=== PATIENT | male | born 1975 | race Caucasian/White ===

== ENCOUNTER 2018-02-13 20:31 | Emergency (ER) | payer BC ==
[~2018-02-13] VITALS: Ht 193 cm; Wt 95.3 kg
[2018-02-13 20:35] VITALS: BP_SYST 137
[2018-02-13 21:53] LABS: EOSINOPHILS # (AUTO) 0.1 K/uL (0.0-0.4); RED BLOOD CELL COUNT(AUTO) 4.99 MIL/uL (4.2-6.2)
[2018-02-13 21:56] LABS: BASOPHILS # (AUTO) 0.2 K/uL (0.0-0.2); BASOPHILS % (AUTO) 1.6 % (0.0-2.0); HEMATOCRIT 44.1 % (36-54); HEMOGLOBIN 15.1 g/dL (14.0-18.0); LYMPHOCYTES # (AUTO) 2.2 K/uL (1.0-5.5); LYMPHOCYTES % (AUTO) 21.6 % (20.5-51.5); MEAN CORPUSCULAR HEMOGLOBIN 30 pg (27-31); MEAN CORPUSCULAR HGB CONC 34 % (32-36); MEAN CORPUSCULAR VOLUME 89 fL (79.0-98.0); MONOCYTES # (AUTO) 0.6 K/uL (0.0-1.0); NEUTROPHILS # (AUTO) 7.3 K/uL (1.8-7.7); NEUTROPHILS % (AUTO) 69.8 % (40.0-70.0); PLATELET COUNT (AUTO) 326 K/uL (130-430); RED CELL DISTRIBUTION WIDTH 12.6 % (9.0-15.0); WHITE BLOOD COUNT (AUTO) 10.4 K/uL (4.8-10.8)
[2018-02-13 21:58] LABS: BILIRUBIN,URINE NEGATIVE (NEGATIVE); BLOOD, URINE NEGATIVE (NEGATIVE); CLARITY/URINE SL CLOUDY (CLEAR); COLOR,URINE YELLOW (YELLOW); GLUCOSE,URINE NEGATIVE (NEGATIVE); KETONES,URINE TRACE (NEGATIVE); LEUKOCYTE ESTERASE ,URINE NEGATIVE (NEGATIVE); NITRITE, URINE NEGATIVE (NEGATIVE); PROTEIN URINE TRACE (NEGATIVE); UROBILINOGEN,URINE 0.2 (0.2-1.0)
[2018-02-13 22:03] LABS: BACTERIA,URINE FEW /HPF (None Seen); RBC,URINE 0-3 /HPF (0-3); URINE AMORPHOUS URATE 2+ /HPF (None Seen); WBC,URINE 0-3 /HPF (0-3)
[2018-02-13 22:06] LABS: ANION GAP 8 (5-15); CALCIUM 8.6 mg/dL (8.4-11.0); CHLORIDE 107 mmol/L (98-107); CREATININE 1.27 mg/dL (0.55-1.30); GLUCOSE 104 mg/dL (70-99); POTASSIUM 3.5 mmol/L (3.5-5.1); SODIUM SERUM 140 mmol/L (136-145); UREA NITROGEN, BLOOD 14 mg/dL (8-21)
[2018-02-13 22:06] LABS: BARBITURATE, URINE NEGATIVE (NEG <=200); BENZODIAZEPINE, URINE NEGATIVE (NEG <=150); CANNABINOID, URINE NEGATIVE (NEG <=50); COCAINE, URINE NEGATIVE (NEG <=150); METHAMPHETAMINES SCREEN,URINE NEGATIVE (NEG <=500); OPIATE, URINE NEGATIVE (NEG <=100); PHENCYCLIDINE SCREEN,URINE NEGATIVE (NEG <=25); UR TRICYCLIC ANTIDEPRESSANTS NEGATIVE (NEG <=300); URINE AMPHETAMINE NEGATIVE (NEG <=500); URINE METHADONE NEGATIVE (NEG <=200); URINE OXYCODONE SCREEN NEGATIVE (NEG <=100); URINE PROPOXYPHENE SCREEN NEGATIVE (NEG <=300)
[2018-02-13 22:07] LABS: GFR AFRICAN AMERICAN 79 mL/min (>90)
[2018-02-13 22:10] LABS: ALANINE AMINOTRANSFERASE 37 U/L (12-78); ALBUMIN 3.9 g/dL (3.4-4.8); ASPARTATE AMINOTRANSFERASE 16 U/L (10-37); TOTAL BILIRUBIN 0.2 mg/dL (0.0-1.0)
[2018-02-13 22:11] LABS: ALCOHOL, BLOOD < 3 mg/dL (<10)
[2018-02-13 22:14] LABS: PROTHROMBIN TIME 10.1 SECS (9.5-12.5)
[2018-02-13] MEDS ORDERED: ASPIRIN 81 MG TAB.CHEW PO ONE (22:30)
[2018-02-13 22:50] VITALS: BP_SYST 140
== END 2018-02-13 22:50 | disposition home or self-care (01) ==
LOC: SED 20:31
DX: H92.02 Otalgia, left ear (principal); R42 Dizziness and giddiness; R53.1 Weakness; R20.0 Anesthesia of skin
CPT/HCPCS: 36415; 70450; 71045; 80053; 80307; 81000; 84484; 85025; 85610; 85730; 93005; 99285; G0482

== ENCOUNTER 2018-03-05 11:32 | Emergency (ER) | payer BC ==
[~2018-03-05] VITALS: Ht 193 cm; Wt 95.3 kg
[2018-03-05 11:42] VITALS: BP_SYST 136
[2018-03-05] MEDS ORDERED: valACYclovir HCL 500 MG TABLET PO ONE (13:45)
[2018-03-05] MEDS ORDERED: PREDNISONE 20 MG TABLET PO ONE (13:45)
[2018-03-05 13:54] VITALS: BP_SYST 134
== END 2018-03-05 13:54 | disposition home or self-care (01) ==
LOC: SED 11:32
DX: G51.0 Bell's palsy (principal)
CPT/HCPCS: 70450; 99284; J7512